=== PATIENT | female | born 1995 | race Caucasian/White ===

== ENCOUNTER 2017-08-21 11:45 | Emergency (ER) | payer BC ==
[~2017-08-21] VITALS: Ht 165.1 cm; Wt 67.0 kg
[2017-08-21 11:49] VITALS: BP 121/79
[2017-08-21 12:54] LABS: HCG UR SG 1.016 (1.003-1.030); MICROSCOPIC AUTO
[2017-08-21 12:56] LABS: CULTURE INDICATED? YES
== END 2017-08-21 14:18 | disposition left against medical advice (07) ==
LOC: ED 14:12
DX: Z53.21 Procedure and treatment not carried out due to patient leaving prior to being seen by health care provider (principal)
CPT/HCPCS: 81001; 81025; 87086; 93005